=== PATIENT | female | born 1985 | race Caucasian/White ===

== ENCOUNTER 2018-02-27 09:03 | Inpatient (IN) | payer OTHER ==
--- NOTE | 2018-02-27 09:25 | PDOC ---
History of Present Illness - General History Source: Patient Exam Limitations: No Limitations - History of Present Illness Initial Comments: 02/27/18 11:08 The patient is a 32-year-old female, s/p cholecystectomy, who presents to the emergency department with worsening abdominal pain that started 4 days ago. Patient states she was here in December for a similar pain. She states the abdominal pain in December was localized more in the epigastric region, but notes the pain is now localized to the right lower quadrant. She states she was referred to a GI specialist during the last visit, and imaging was only remarkable for a left kidney stone and benign liver lesion. She also had a pelvic sonogram that was unremarkable. She states the abdominal pain is worsened when walking and moving. She reports the pain radiates to the back occasionally, but denies any flank pain. She reports associated nausea, subjective fever, chills, and white vaginal discharge. She states she has been taking percocet 3x per day with no significant relief of pain. The patient denies chest pain, shortness of breath, headache and dizziness. The patient denies vomit, diarrhea and constipation. The patient denies dysuria, frequency, urgency, hematuria, or vaginal bleeding. LMP: 01/30/18 Allergies: NKDA Past Surgical History: cholecystectomy, tube ligation, 3 c-sections Social History: No toxic habits reported <Estella Sanford - Last Filed: 02/27/18 13:16> <Lo Felix - Last Filed: 02/27/18 18:08> - General Chief Complaint: Pain, Acute Stated Complaint: ABD PAIN Time Seen by Provider: 02/27/18 09:24 Past History <Estella Sanford - Last Filed: 02/27/18 13:16> - Past Medical History COPD: No Other medical history: DENIES. - Surgical History Cholecystectomy: Yes - Suicide/Smoking/Psychosocial Hx Smoking History: Never smoked <Lo Felix - Last Filed: 02/27/18 18:08> - Past Medical History Allergies/Adverse Reactions: Allergies Allergy/AdvReac Type Severity Reaction Status Date / Time No Known Allergies Allergy Verified 02/27/18 09:12 Home Medications: Ambulatory Orders Oxycodone HCl/Acetaminophen [Oxycodon-Acetaminophen 7.5-325] 1 each PO Q6H PRN 02/27/18 Review of Systems - Review of Systems Able to Perform ROS?: Yes Comments:: 02/27/18 11:09 GENERAL/CONSTITUTIONAL: (+) Subjective fever. (+) Chills. No weakness. HEAD, EYES, EARS, NOSE AND THROAT: No change in vision. No ear pain or discharge. No sore throat. CARDIOVASCULAR: No chest pain or shortness of breath. RESPIRATORY: No cough, wheezing, or hemoptysis. GASTROINTESTINAL: (+) Abdominal pain. (+) Nausea. No vomiting, diarrhea or constipation. GENITOURINARY: No dysuria, frequency, or change in urination. MUSCULOSKELETAL: No joint or muscle swelling or pain. No neck or back pain. SKIN: No rash NEUROLOGIC: No headache, vertigo, loss of consciousness, or change in strength/ sensation. ENDOCRINE: No increased thirst. No abnormal weight change. HEMATOLOGIC/LYMPHATIC: No anemia, easy bleeding, or history of blood clots. ALLERGIC/IMMUNOLOGIC: No hives or skin allergy. <Sanford,Estella - Last Filed: 02/27/18 13:16> *Physical Exam - Vital Signs Last Vital Signs Temp Pulse Resp BP Pulse Ox 102.9 F H 106 H 19 112/56 100 02/27/18 10:52 02/27/18 09:07 02/27/18 09:07 02/27/18 09:07 02/27/18 09:07 - Physical Exam Comments: 02/27/18 11:10 GENERAL: Awake, alert, and fully oriented. (+) Appears uncomfortable, has rigors. HEAD: No signs of trauma EYES: PERRLA, EOMI, sclera anicteric, conjunctiva clear ENT: Auricles normal inspection, hearing grossly normal, nares patent, oropharynx clear without exudates. Moist mucosa NECK: Normal ROM, supple, no lymphadenopathy, JVD, or masses LUNGS: Breath sounds equal, clear to auscultation bilaterally. No wheezes, and no crackles HEART: Regular rate and rhythm, normal S1 and S2, no murmurs, rubs or gallops ABDOMEN: Soft, (+) RLQ ttp, normoactive bowel sounds. No guarding, no rebound. No masses. No CVA tenderness. Non-distended. VAGINAL EXAM: (+) Minimal physiologic white discharge. No CMT. No adnexal tenderness. Os is closed. EXTREMITIES: Normal range of motion, no edema. No clubbing or cyanosis. No cords, erythema, or tenderness NEUROLOGICAL: Cranial nerves II through XII grossly intact. Normal speech. SKIN: Warm, Dry, normal turgor, no rashes or lesions noted. <SanfordEstella - Last Filed: 02/27/18 13:16> - Vital Signs Last Vital Signs Temp Pulse Resp BP Pulse Ox 98.1 F 106 H 19 112/56 100 02/27/18 09:07 02/27/18 09:07 02/27/18 09:07 02/27/18 09:07 02/27/18 09:07 <Lo Felix - Last Filed: 02/27/18 18:08> ED Treatment Course - LABORATORY CBC & Chemistry Diagram: 02/27/18 10:41 02/27/18 10:41 - ADDITIONAL ORDERS Additional order review: Laboratory Results 02/27/18 09:30 Urine Color Yellow Urine Appearance Cloudy Urine pH 7.0 Ur Specific [place] 1.013 Urine Protein 2+ H Urine Glucose (UA) Negative Urine Ketones Negative Urine Blood 1+ H Urine Nitrite Positive Urine Bilirubin Negative Urine Urobilinogen Negative Ur Leukocyte Esterase 2+ H Urine WBC (Auto) 77 Urine RBC (Auto) 9 Ur Epithelial Cells Few Urine Bacteria Few Urine Mucus Few Urine Yeast Few Urine HCG, Qual Negative 02/27/18 10:41 RBC 4.37 MCV 77.9 L MCHC 33.3 RDW 15.7 H MPV 8.7 Neutrophils % 81.6 D Lymphocytes % 11.5 D Monocytes % 6.4 Eosinophils % 0.2 Basophils % 0.3 - Medications Given in the ED: ED Medications Discontinued Medications Generic Name Dose Route Start Last Admin Trade Name Caleb PRN Reason Stop Dose Admin Acetaminophen 1,000 mg 02/27/18 10:49 02/27/18 10:49 Ofirmev Injection - IVPB 02/27/18 10:50 1,000 mg NOW ONE Administration Morphine Sulfate 4 mg 02/27/18 10:28 02/27/18 10:49 Morphine Injection - IVPUSH 02/27/18 10:29 4 mg ONCE ONE Administration <JuvenalEstella - Last Filed: 02/27/18 13:16> - LABORATORY CBC & Chemistry Diagram: 02/27/18 10:41 02/27/18 10:41 <Lo Felix - Last Filed: 02/27/18 18:08> Medical Decision Making - Medical Decision Making 02/27/18 12:59 Pt presents to the ED complaining of R sided abdominal pain and fever for 4 days. Febrile and uncomfortable in the ED. Pelvic exam is inconsistent with PID. Differential diangosis includes appendicitis, urinary tract infection, less likely PID or diverticulitis. Will check labs and CT abdomen pelvis, reassess. <Lo Felix - Last Filed: 02/27/18 18:08> *DC/Admit/Observation/Transfer - Attestations Scribe Attestion: 02/27/18 11:10 Documentation prepared by Estella Sanford, acting as manager medical device for Lo Felix MD, /DO. <Estella Sanford - Last Filed: 02/27/18 13:16> - Discharge Dispostion Admit: Yes <Lo Felix - Last Filed: 02/27/18 18:08> Diagnosis at time of Disposition: Pyelonephritis - Discharge Dispostion Condition at time of disposition: Good
[2018-02-27 09:51] LABS: URINE APPEARANCE CLOUDY; URINE BILIRUBIN NEGATIVE (<2.0 mg/dL); URINE BLOOD 1+ (NEGATIVE); URINE COLOR YELLOW; URINE GLUCOSE (UA) NEGATIVE (NEGATIVE); URINE KETONE NEGATIVE (NEGATIVE); URINE NITRITE POSITIVE (NEGATIVE); URINE UROBILINOGEN NEGATIVE mg/dL (0.2-1.0)
[2018-02-27 09:56] LABS: HCG,QUALITATIVE URINE NEGATIVE
[2018-02-27 09:59] LABS: URINE LEUK ESTERASE 2+ (NEGATIVE); URINE PROTEIN 2+ (NEGATIVE)
[2018-02-27 10:04] LABS: EPI CELLS FEW /HPF (FEW); URINE BACTERIA FEW /hpf (NONE SEEN); URINE MUCUS FEW; YEAST FEW
[2018-02-27] MEDS ORDERED: SODIUM CHLORIDE 1,000 ML IV STA ×3 (10:28→20:59)
[2018-02-27] MEDS ORDERED: morphine CARPU-JECT 4 MG/1 ML DISP.SYRIN IVPUSH ONE ×2 (10:28→17:00)
[2018-02-27] MEDS ORDERED: morphine SULFATE 4 MG/ML VIAL ONE ×2 (10:42→18:14)
[2018-02-27] MEDS ORDERED: ACETAMINOPHEN INJECTION 100 ML IVPB ONE (10:43)
[2018-02-27] MEDS ORDERED: ACETAMINOPHEN 1000 MG/100 ML VIAL (NON FORMULARY) IVPB ONE (10:49)
[2018-02-27 10:59] LABS: BASO % 0.3 % (0-2.0); EOS % 0.2 % (0-4.5); HEMATOCRIT 34.1 % (32.4-45.2); HEMOGLOBIN 11.4 GM/dL (10.7-15.3); LYMPH % 11.5 % (8-40); MCHC 33.3 g/dl (32.0-36.0); MEAN CELL VOLUME 77.9 fl (80-96); MEAN PLT VOLUME 8.7 fl (7.5-11.1); MONO % 6.4 % (3.8-10.2); NEUT % 81.6 % (42.8-82.8); PLATELET COUNT 264 K/MM3 (134-434); RBC 4.37 M/mm3 (3.60-5.2); RDW 15.7 % (11.6-15.6); WHITE BLOOD COUNT 9.4 K/mm3 (4.0-10.0)
[2018-02-27 11:25] LABS: ALBUMIN 4.1 g/dl (3.4-5.0); ALK PHOS 149 U/L (45-117); ANION GAP 8 (8-16); BILIRUBIN,TOTAL 0.6 mg/dL (0.2-1.0); BLOOD UREA NITROGEN 7 mg/dL (7-18); CALCIUM 9.2 mg/dL (8.5-10.1); CHLORIDE 102 mmol/L (98-107); CO2 27 mmol/L (21-32); CREATININE 0.7 mg/dL (0.55-1.02); GLUCOSE,RANDOM 87 mg/dL (74-106); SGPT/ALT 37 U/L (12-78); SODIUM 137 mmol/L (136-145); TOT PROT 8.2 g/dl (6.4-8.2)
[2018-02-27 11:26] LABS: POTASSIUM 4.1 mmol/L (3.5-5.1); SGOT/AST 27 U/L (15-37)
[2018-02-27] MEDS ORDERED: ONDANSETRON 4 MG/2 ML VIAL IVPUSH ONE (15:24)
[2018-02-27] MEDS ORDERED: CEFTRIAXONE 1 GM in DEXTROSE 5%-WATER - 100 ML IVPB ONE (15:27)
[2018-02-27] MEDS ORDERED: CEFTRIAXONE 1 GM/50 ML BAG ONE (15:59)
--- NOTE | 2018-02-27 18:08 | HP ---
CHIEF COMPLAINT: Abdominal pain HISTORY OF PRESENT ILLNESS: 32 year-old female with a PMH significant for gastritis, and multiple abdominal surgeries (cholecystectomy, C-sections x 3, tubal ligation). Comes to the ED with complaint of abdominal pain x 4 days. Patient was seen in ED in December for similar complaint. Pain is localized to the RLQ and occasionally radiates to the back. She complains of nausea, subjective fever, chills and a white vaginal discharge. She has taken percocet 3x per day without significant relief of pain. Patient denies denies chest pain, shortness of breath, headache, and dizziness. The patient denies vomiting, diarrhea, and constipation. The patient denies dysuria, frequency, urgency, hematuria, and vaginal bleeding. LMP 01/30/18. ER course was notable for: (1) T102.9, p106, pyuria (2) Lactic acid 2.3 (3) Ceftriaxone x 1; NS x 1L; Zofran; IV Tylenol; morphine 4mg x 2 Recent Travel: No PAST MEDICAL HISTORY: Gastritis PAST SURGICAL HISTORY: Cholecystectomy C-sections x 3 Tubal ligation Social History: Smoking: no Alcohol: no Drugs: no Family History: Allergies No Known Allergies Allergy (Verified 02/27/18 09:12) HOME MEDICATIONS: Home Medications Medication Instructions Recorded Oxycodone HCl/Acetaminophen 1 each PO Q6H PRN 02/27/18 [Oxycodon-Acetaminophen 7.5-325] REVIEW OF SYSTEMS CONSTITUTIONAL: +fever, chills Absent: fever, chills, diaphoresis, generalized weakness, malaise, loss of appetite, weight change HEENT: Absent: rhinorrhea, nasal congestion, throat pain, throat swelling, difficulty swallowing, mouth swelling, ear pain, eye pain, visual changes CARDIOVASCULAR: Absent: chest pain, syncope, palpitations, irregular heart rate, lightheadedness , peripheral edema RESPIRATORY: Absent: cough, shortness of breath, dyspnea with exertion, orthopnea, wheezing, stridor, hemoptysis GASTROINTESTINAL: Absent: abdominal pain, abdominal distension, nausea, vomiting, diarrhea, constipation, melena, hematochezia GENITOURINARY: +RLQ pain Absent: dysuria, frequency, urgency, hesitancy, hematuria, flank pain, genital pain MUSCULOSKELETAL: Absent: myalgia, arthralgia, joint swelling, back pain, neck pain SKIN: Absent: rash, itching, pallor HEMATOLOGIC/IMMUNOLOGIC: Absent: easy bleeding, easy bruising, lymphadenopathy, frequent infections ENDOCRINE: Absent: unexplained weight gain, unexplained weight loss, heat intolerance, cold intolerance NEUROLOGIC: Absent: headache, focal weakness or paresthesias, dizziness, unsteady gait, seizure, mental status changes, bladder or bowel incontinence PSYCHIATRIC: Absent: anxiety, depression, suicidal or homicidal ideation, hallucinations. PHYSICAL EXAMINATION Vital Signs - 24 hr 02/27/18 02/27/18 09:07 10:52 Temperature 98.1 F 102.9 F H Pulse Rate 106 H Respiratory 19 Rate Blood Pressure 112/56 O2 Sat by Pulse 100 Oximetry (%) GENERAL: Awake, alert, and fully oriented, in no acute distress. HEAD: Normal with no signs of trauma. EYES: Pupils equal, round and reactive to light, extraocular movements intact, sclera anicteric, conjunctiva clear. No lid lag. EARS, NOSE, THROAT: Ears normal, nares patent, oropharynx clear without exudates. Moist mucous membranes. NECK: Normal range of motion, supple without lymphadenopathy, JVD, or masses. LUNGS: Breath sounds equal, clear to auscultation bilaterally. No wheezes, and no crackles. No accessory muscle use. HEART: Regular rate and rhythm, normal S1 and S2 without murmur, rub or gallop. ABDOMEN: Soft, RLQ tenderness, not distended, normoactive bowel sounds, no guarding, no rebound, no masses. MUSCULOSKELETAL: Normal range of motion at all joints. No bony deformities or tenderness. + Right CVA tenderness. UPPER EXTREMITIES: 2+ pulses, warm, well-perfused. No cyanosis. No clubbing. No peripheral edema. LOWER EXTREMITIES: 2+ pulses, warm, well-perfused. No calf tenderness. No peripheral edema. NEUROLOGICAL: Cranial nerves II-XII intact. Normal speech. Normal gait. PSYCHIATRIC: Cooperative. Good eye contact. Appropriate mood and affect. SKIN: Warm, dry, normal turgor Laboratory Results - last 24 hr 02/27/18 02/27/18 02/27/18 09:30 10:41 10:41 WBC 9.4 RBC 4.37 Hgb 11.4 Hct 34.1 MCV 77.9 L MCH 26.0 MCHC 33.3 RDW 15.7 H Plt Count 264 MPV 8.7 Neutrophils % 81.6 D Lymphocytes % 11.5 D Monocytes % 6.4 Eosinophils % 0.2 Basophils % 0.3 Sodium 137 Potassium 4.1 Chloride 102 Carbon Dioxide 27 Anion Gap 8 BUN 7 Creatinine 0.7 Creat Clearance w eGFR > 60 Random Glucose 87 Lactic Acid Calcium 9.2 Total Bilirubin 0.6 D AST 27 ALT 37 Alkaline Phosphatase 149 H Total Protein 8.2 Albumin 4.1 Urine Color Yellow Urine Appearance Cloudy Urine pH 7.0 Ur Specific [place] 1.013 Urine Protein 2+ H Urine Glucose (UA) Negative Urine Ketones Negative Urine Blood 1+ H Urine Nitrite Positive Urine Bilirubin Negative Urine Urobilinogen Negative Ur Leukocyte Esterase 2+ H Urine WBC (Auto) 77 Urine RBC (Auto) 9 Ur Epithelial Cells Few Urine Bacteria Few Urine Mucus Few Urine Yeast Few Urine HCG, Qual Negative 02/27/18 10:41 WBC RBC Hgb Hct MCV MCH MCHC RDW Plt Count MPV Neutrophils % Lymphocytes % Monocytes % Eosinophils % Basophils % Sodium Potassium Chloride Carbon Dioxide Anion Gap BUN Creatinine Creat Clearance w eGFR Random Glucose Lactic Acid 2.3 H* Calcium Total Bilirubin AST ALT Alkaline Phosphatase Total Protein Albumin Urine Color Urine Appearance Urine pH Ur Specific [place] Urine Protein Urine Glucose (UA) Urine Ketones Urine Blood Urine Nitrite Urine Bilirubin Urine Urobilinogen Ur Leukocyte Esterase Urine WBC (Auto) Urine RBC (Auto) Ur Epithelial Cells Urine Bacteria Urine Mucus Urine Yeast Urine HCG, Qual Imaging 02/27 CTAP: (1) 1.1cm nonspecific low attentuation focus left hepatic lobe, cyst with internal debris v. 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 Placed on observation for severe sepsis likely secondary to pyelonephritis. Severe sepsis likely seconday to pyelonephritis --T102.9, p106, pyuria, lactic acid 2.3 --NS 1L in ED, give another 2L, then 125mL/hr --ceftriaxone (day #1) --repeat lactic acid now --panculture FEN Fluids: NS @125mL/hr Electrolytes: replete as indicated Nutrition: regular diet DVT prophylaxis: oob, ambulation Dispo: continues to require observation. Full code. Visit type - Emergency Visit Emergency Visit: Yes ED Registration Date: 02/27/18 Care time: The patient presented to the Emergency Department on the above date and was hospitalized for further evaluation of their emergent condition. - New Patient This patient is new to me today: Yes Date on this admission: 02/27/18 - Critical Care Critical Care patient: No Hospitalist Screening - Colonoscopy Questionnaire Colonoscopy Questionnaire: Colonoscopy Questionnaire - Patient: 50 - 75 years old and never had a screening colonoscopy: No History of colon or rectal polyps, or CA: Unknown History of IBD, Crohn's disease or UC: Unknown History of abdominal radiation therapy as a child: Unknown - Relative: 1 with colon or rectal CA, or polyps at age 60 or younger: Unknown Colon or rectal CA diagnosed at age 45 or younger: Unknown Multiple relatives with colon or rectal CA: Unknown - Outcome: Screening Result: Negative Screen
[2018-02-27] MEDS ORDERED: SODIUM CHLORIDE 0.9% 1000 ML INFUS.BAG IV ONE (19:18)
[2018-02-27] MEDS: SODIUM CHLORIDE 1,000 ML IV SCH (19:39)
[2018-02-27] MEDS: ACETAMINOPHEN 325 MG TABLET (FP) PO SCH (21:56)
[2018-02-27] MEDS ORDERED: ACETAMINOPHEN 325 MG TABLET (FP) ONE (22:12)
[2018-02-28 01:10] VITALS: BMI 32.3
[2018-02-28] MEDS: ACETAMINOPHEN 325 MG TABLET (FP) PO SCH ×4 (03:00→20:10)
[2018-02-28] MEDS: oxyCODONE HCL 5 MG TABLET PO PRN ×3 (07:01→22:03)
[2018-02-28 07:59] LABS: BASO % 0.2 % (0-2.0); EOS % 0.4 % (0-4.5); HEMOGLOBIN 9.6 GM/dL (10.7-15.3); LYMPH % 15.2 % (8-40); MCH 26.2 pg (25.7-33.7); MCHC 33.3 g/dl (32.0-36.0); MEAN CELL VOLUME 78.6 fl (80-96); MEAN PLT VOLUME 8.9 fl (7.5-11.1); MONO % 9.3 % (3.8-10.2); NEUT % 74.9 % (42.8-82.8); PLATELET COUNT 189 K/MM3 (134-434); RBC 3.68 M/mm3 (3.60-5.2); RDW 15.9 % (11.6-15.6); WHITE BLOOD COUNT 9.8 K/mm3 (4.0-10.0)
[2018-02-28] MEDS: SODIUM CHLORIDE 1,000 ML IV SCH ×3 (08:21→20:09)
[2018-02-28 08:29] LABS: ANION GAP 7 (8-16); BLOOD UREA NITROGEN 7 mg/dL (7-18); CALCIUM 7.8 mg/dL (8.5-10.1); CHLORIDE 106 mmol/L (98-107); CO2 26 mmol/L (21-32); GLUCOSE,RANDOM 75 mg/dL (74-106); MAGNESIUM 1.8 mg/dL (1.8-2.4); POTASSIUM 3.4 mmol/L (3.5-5.1); SODIUM 139 mmol/L (136-145)
[2018-02-28 08:34] LABS: ALK PHOS 117 U/L (45-117); BILIRUBIN,TOTAL 0.5 mg/dL (0.2-1.0); CREATININE 0.5 mg/dL (0.55-1.02); SGOT/AST 19 U/L (15-37); SGPT/ALT 38 U/L (12-78); TOT PROT 6.2 g/dl (6.4-8.2)
[2018-02-28] MEDS ORDERED: DEXTROSE 5%-WATER - 50 ML IVPB ONE (09:00)
[2018-02-28] MEDS ORDERED: cefTRIAXone SODIUM 1 GM VIAL ONE (09:00)
[2018-02-28] MEDS ORDERED: PT OWN MED DRAWER 7, Y5N ONE (09:00)
[2018-02-28] MEDS ORDERED: CEFTRIAXONE 1 GM in DEXTROSE 5%-WATER - 50 ML IVPB SCH (10:00)
[2018-02-28] MEDS ORDERED: POTASSIUM CHLORIDE TABS 20 MEQ TABLET.ER (FP) PO ONE (14:15)
--- NOTE | 2018-02-28 14:58 | PN ---
Progress Note (short form) - Note Progress Note: Subjective: The patient was seen and examined at the bedside, she has complaints of pain to her right flank. Current Medications Generic Name Dose Route Start Last Admin Trade Name Caleb PRN Reason Stop Dose Admin Acetaminophen 650 mg 02/27/18 21:00 02/28/18 14:46 Tylenol - PO 650 mg Q6H APOLINAR Administration Sodium Chloride 1,000 mls @ 125 mls/hr 02/27/18 19:15 02/28/18 08:21 Normal Saline - IV 125 mls/hr ASDIR APOLINAR Administration Ceftriaxone Sodium 1 gm/ 50 mls @ 100 mls/hr 02/28/18 10:00 02/28/18 09:07 Dextrose IVPB 100 mls/hr DAILY APOLINAR Administration Oxycodone HCl 5 mg 02/27/18 19:14 02/28/18 12:38 Roxicodone - PO 5 mg Q4H PRN Administration PAIN LEVEL 6-10 Objective: Vital Signs Period Temp Pulse Resp BP Sys/Moeller Pulse Ox Last 24 Hr 97.7 F-99.8 F 84-105 18-20 90-107/51-65 99-99 Physical Exam: General: NAD, A&Ox3 Lungs: CTA bilaterally Heart: RRR, S1S2 Abd: Soft, RUQ tenderness, R CVA tenderness Ext: Warm, well-perfused. 2+ DP/PT bilaterally. No edema CBCD WBC 9.8 K/mm3 (4.0-10.0) 02/28/18 06:25 RBC 3.68 M/mm3 (3.60-5.2) 02/28/18 06:25 Hgb 9.6 GM/dL (10.7-15.3) L D 02/28/18 06:25 Hct 29.0 % (32.4-45.2) L 02/28/18 06:25 MCV 78.6 fl (80-96) L 02/28/18 06:25 MCHC 33.3 g/dl (32.0-36.0) 02/28/18 06:25 RDW 15.9 % (11.6-15.6) H 02/28/18 06:25 Plt Count 189 K/MM3 (134-434) D 02/28/18 06:25 MPV 8.9 fl (7.5-11.1) 02/28/18 06:25 CMP Sodium 139 mmol/L (136-145) 02/28/18 06:25 Potassium 3.4 mmol/L (3.5-5.1) L 02/28/18 06:25 Chloride 106 mmol/L (98-107) 02/28/18 06:25 Carbon Dioxide 26 mmol/L (21-32) 02/28/18 06:25 Anion Gap 7 (8-16) L 02/28/18 06:25 BUN 7 mg/dL (7-18) 02/28/18 06:25 Creatinine 0.5 mg/dL (0.55-1.02) L 02/28/18 06:25 Creat Clearance w eGFR > 60 (>60) 02/28/18 06:25 Random Glucose 75 mg/dL (74-106) 02/28/18 06:25 Calcium 7.8 mg/dL (8.5-10.1) L 02/28/18 06:25 Total Bilirubin 0.5 mg/dL (0.2-1.0) 02/28/18 06:25 AST 19 U/L (15-37) 02/28/18 06:25 ALT 38 U/L (12-78) 02/28/18 06:25 Alkaline Phosphatase 117 U/L (45-117) 02/28/18 06:25 Total Protein 6.2 g/dl (6.4-8.2) L 02/28/18 06:25 Albumin 3.0 g/dl (3.4-5.0) L 02/28/18 06:25 Microbiology 02/27/18 09:30 Urine - Urine Clean Catch Urine Culture - Preliminary Lactose Fermenting Neg Bacilli Assessment: This is a 32 year old female with PMHx of gastritis, multiple abdominal surgeries, who presented to the ED with abdominal pain x4 days and right flank pain. Plan: 1) Severe sepsis 2/2 acute pyelonephritis - Lactic acidosis resolved - Ceftriaxone - Urine culture with lactose fermenting negative bacilli - F/u blood cultures 2) F/E/N: - Hyperkalemia: replete - Monitor electrolytes - Regular diet 3) Prophylaxis: - Heparin 5,000u sq tid 4) Dispo: - Requires continued inpatient care CODE STATUS: FULL CODE Visit type - Emergency Visit Emergency Visit: Yes ED Registration Date: 02/27/18 Care time: The patient presented to the Emergency Department on the above date and was hospitalized for further evaluation of their emergent condition. - New Patient This patient is new to me today: Yes Date on this admission: 02/28/18 - Critical Care Critical Care patient: No
[2018-02-28] MEDS: morphine SULFATE 4 MG/ML VIAL IVPUSH PRN (19:52)
[2018-02-28] MEDS: HEPARIN NA (PORCINE) 5,000 UNITS/ML 1ML VIAL SQ SCH (21:21)
[2018-03-01] MEDS: morphine SULFATE 4 MG/ML VIAL IVPUSH PRN (01:25)
[2018-03-01] MEDS: ACETAMINOPHEN 325 MG TABLET (FP) PO SCH ×4 (03:40→21:26)
[2018-03-01] MEDS: oxyCODONE HCL 5 MG TABLET PO PRN ×2 (05:42→12:58)
[2018-03-01] MEDS: HEPARIN NA (PORCINE) 5,000 UNITS/ML 1ML VIAL SQ SCH ×3 (05:42→21:28)
[2018-03-01] MEDS ORDERED: MEROPENEM 1 GM in DEXTROSE 5%-WATER - 100 ML IVPB SCH (07:30)
[2018-03-01] MEDS ORDERED: MEROPENEM 1 GM in DEXTROSE 5%-WATER - 100 ML IVPB ONE (07:30)
[2018-03-01 07:41] LABS: BASO % 0.3 % (0-2.0); EOS % 0.6 % (0-4.5); HEMOGLOBIN 9.1 GM/dL (10.7-15.3); LYMPH % 22.6 % (8-40); MCH 26.1 pg (25.7-33.7); MCHC 33.5 g/dl (32.0-36.0); MEAN CELL VOLUME 77.8 fl (80-96); MEAN PLT VOLUME 8.1 fl (7.5-11.1); MONO % 10.7 % (3.8-10.2); NEUT % 65.8 % (42.8-82.8); PLATELET COUNT 174 K/MM3 (134-434); RBC 3.47 M/mm3 (3.60-5.2); RDW 15.8 % (11.6-15.6)
[2018-03-01 08:21] LABS: ALBUMIN 2.9 g/dl (3.4-5.0); ANION GAP 10 (8-16); BLOOD UREA NITROGEN 4 mg/dL (7-18); CALCIUM 7.8 mg/dL (8.5-10.1); CHLORIDE 105 mmol/L (98-107); CO2 24 mmol/L (21-32); CREATININE 0.5 mg/dL (0.55-1.02); GLUCOSE,RANDOM 81 mg/dL (74-106); POTASSIUM 3.9 mmol/L (3.5-5.1); SGOT/AST 20 U/L (15-37); SGPT/ALT 31 U/L (12-78); SODIUM 139 mmol/L (136-145)
[2018-03-01 08:22] LABS: ALK PHOS 110 U/L (45-117); BILIRUBIN,TOTAL 0.3 mg/dL (0.2-1.0); TOT PROT 6.2 g/dl (6.4-8.2)
[2018-03-01] MEDS ORDERED: PT OWN MED DRAWER 7, Y5N ONE ×2 (08:35→14:35)
--- NOTE | 2018-03-01 09:12 | PN ---
Progress Note (short form) - Note Progress Note: Subjective: The patient was seen and examined at the bedside, she has complaints of pain to her right flank. Increase morphine Fevers overnight, send cultures Change abx to meropenem Current Medications Generic Name Dose Route Start Last Admin Trade Name Freq PRN Reason Stop Dose Admin Acetaminophen 650 mg 02/27/18 21:00 03/01/18 07:59 Tylenol - PO 650 mg Q6H APOLINAR Administration Heparin Sodium (Porcine) 5,000 unit 02/28/18 22:00 03/01/18 05:42 Heparin - SQ 5,000 unit TID APOLINAR Administration Sodium Chloride 1,000 mls @ 125 mls/hr 02/27/18 19:15 02/28/18 20:09 Normal Saline - IV 125 mls/hr ASDIR APOLINAR Administration Meropenem 1 gm/ Dextrose 100 mls @ 100 mls/hr 03/01/18 07:30 IVPB Q8H-IV APOLINAR Protocol Morphine Sulfate 2 mg 02/28/18 18:59 03/01/18 01:25 Morphine Sulfate IVPUSH 2 mg Q4H PRN Administration PAIN LEVEL 6-10 Oxycodone HCl 5 mg 02/27/18 19:14 03/01/18 05:42 Roxicodone - PO 5 mg Q4H PRN Administration PAIN LEVEL 1-5 Objective: Vital Signs Period Temp Pulse Resp BP Sys/Moeller Pulse Ox Last 24 Hr 97.8 F-102.7 F 93-110 18-20 107-148/58-77 100 Physical Exam: General: NAD, A&Ox3 Lungs: CTA bilaterally Heart: RRR, S1S2 Abd: Soft, RUQ tenderness, R CVA tenderness Ext: Warm, well-perfused. 2+ DP/PT bilaterally. No edema CBCD WBC 6.0 K/mm3 (4.0-10.0) D 03/01/18 06:30 RBC 3.47 M/mm3 (3.60-5.2) L 03/01/18 06:30 Hgb 9.1 GM/dL (10.7-15.3) L 03/01/18 06:30 Hct 27.0 % (32.4-45.2) L 03/01/18 06:30 MCV 77.8 fl (80-96) L 03/01/18 06:30 MCHC 33.5 g/dl (32.0-36.0) 03/01/18 06:30 RDW 15.8 % (11.6-15.6) H 03/01/18 06:30 Plt Count 174 K/MM3 (134-434) 03/01/18 06:30 MPV 8.1 fl (7.5-11.1) 03/01/18 06:30 CMP Sodium 139 mmol/L (136-145) 02/28/18 06:25 Potassium 3.4 mmol/L (3.5-5.1) L 02/28/18 06:25 Chloride 106 mmol/L (98-107) 02/28/18 06:25 Carbon Dioxide 26 mmol/L (21-32) 02/28/18 06:25 Anion Gap 7 (8-16) L 02/28/18 06:25 BUN 7 mg/dL (7-18) 02/28/18 06:25 Creatinine 0.5 mg/dL (0.55-1.02) L 02/28/18 06:25 Creat Clearance w eGFR > 60 (>60) 02/28/18 06:25 Random Glucose 75 mg/dL (74-106) 02/28/18 06:25 Calcium 7.8 mg/dL (8.5-10.1) L 02/28/18 06:25 Total Bilirubin 0.5 mg/dL (0.2-1.0) 02/28/18 06:25 AST 19 U/L (15-37) 02/28/18 06:25 ALT 38 U/L (12-78) 02/28/18 06:25 Alkaline Phosphatase 117 U/L (45-117) 02/28/18 06:25 Total Protein 6.2 g/dl (6.4-8.2) L 02/28/18 06:25 Albumin 3.0 g/dl (3.4-5.0) L 02/28/18 06:25 Microbiology 02/27/18 20:37 Blood - Peripheral Venous Blood Culture - Preliminary NO GROWTH OBTAINED AFTER 24 HOURS, INCUBATION TO CONTINUE FOR 4 DAYS. 02/27/18 20:37 Blood - Peripheral Venous Blood Culture - Preliminary NO GROWTH OBTAINED AFTER 24 HOURS, INCUBATION TO CONTINUE FOR 4 DAYS. 02/27/18 09:30 Urine - Urine Clean Catch Urine Culture - Preliminary Lactose Fermenting Neg Bacilli Assessment: This is a 32 year old female with PMHx of gastritis, multiple abdominal surgeries, who presented to the ED with abdominal pain x4 days and right flank pain. Plan: 1) Severe sepsis 2/2 acute pyelonephritis - Febrile overnight - Resend cultures - Changed Ceftriaxone to Meropenem - Urine culture with lactose fermenting negative bacilli - F/u ID consult 2) F/E/N: - Monitor electrolytes - Regular diet 3) Prophylaxis: - Heparin 5,000u sq tid 4) Dispo: - Requires continued inpatient care - Per patient's request, discussed with sisterKayli CODE STATUS: FULL CODE Visit type - Emergency Visit Emergency Visit: Yes ED Registration Date: 02/28/18 Care time: The patient presented to the Emergency Department on the above date and was hospitalized for further evaluation of their emergent condition. - New Patient This patient is new to me today: No - Critical Care Critical Care patient: No
[2018-03-01] MEDS ORDERED: morphine SULFATE 4 MG/ML VIAL IVPUSH PRN (09:13)
--- NOTE | 2018-03-01 11:12 | PN ---
Progress Note, Physician Chief Complaint: ID 32 year old from [place] admitted for severe right upper quantrant and flank pain. Tmax 102.9 fever chills Denies urinary complaints hematuria. Recent CT scan showed a small left kidney stone Has had her gallbladder taken out - Current Medication List Current Medications: Active Medications Acetaminophen (Tylenol -) 650 mg PO Q6H [facility] Last Admin: 03/01/18 07:59 Dose: 650 mg Heparin Sodium (Porcine) (Heparin -) 5,000 unit SQ TID [facility] Last Admin: 03/01/18 05:42 Dose: 5,000 unit Sodium Chloride (Normal Saline -) 1,000 mls @ 125 mls/hr IV ASDIR APOLINAR Last Admin: 02/28/18 20:09 Dose: 125 mls/hr Meropenem 1 gm/ Dextrose 100 mls @ 100 mls/hr IVPB Q8H-IV APOLINAR PRN Reason: Protocol Morphine Sulfate (Morphine Sulfate) 3 mg IVPUSH Q4H PRN PRN Reason: PAIN LEVEL 6-10 Oxycodone HCl (Roxicodone -) 5 mg PO Q4H PRN PRN Reason: PAIN LEVEL 1-5 Last Admin: 03/01/18 05:42 Dose: 5 mg - Objective Vital Signs: Vital Signs Temperature 98.8 F 03/01/18 06:33 Pulse Rate 99 H 03/01/18 06:33 Respiratory Rate 18 03/01/18 06:33 Blood Pressure 111/69 03/01/18 06:33 O2 Sat by Pulse Oximetry (%) 100 02/28/18 22:00 Constitutional: Yes: No Distress Neck: Yes: WNL, Supple Cardiovascular: Yes: Regular Rate and Rhythm, S1, S2. No: Murmur Respiratory: Yes: WNL, Regular, CTA Bilaterally Gastrointestinal: Yes: WNL, Normal Bowel Sounds, Soft, Tenderness, Other (RUQ and flank tender) Edema: No Labs: CBC, BMP 03/01/18 06:30 03/01/18 06:30 Problem List - Problems (1) Pyelonephritis Code(s): N12 - TUBULO-INTERSTITIAL NEPHRITIS, NOT SPCF ACUTE OR CHRONIC Assessment/Plan Microbiology 02/27/18 20:37 Blood - Peripheral Venous Blood Culture - Preliminary NO GROWTH OBTAINED AFTER 24 HOURS, INCUBATION TO CONTINUE FOR 4 DAYS. 02/27/18 20:37 Blood - Peripheral Venous Blood Culture - Preliminary NO GROWTH OBTAINED AFTER 24 HOURS, INCUBATION TO CONTINUE FOR 4 DAYS. 02/27/18 09:30 Urine - Urine Clean Catch Urine Culture - Preliminary Lactose Fermenting Neg Bacilli Laboratory Tests 02/27/18 03/01/18 03/01/18 09:30 06:30 06:30 WBC 6.0 D RBC 3.47 L Hgb 9.1 L MCV 77.8 L Plt Count 174 BUN 4 L Urine RBC (Auto) 9 Urine HCG, Qual Negative Assessment Pyelonephritis improving GNB in urinary tract ESBL Plan Ertepenem 1 gram daily Renal sonogram and contact isolation Oliver PALACIOS
[2018-03-01] MEDS: ERTAPENEM SODIUM 1 GM in SODIUM CHLORIDE 100 ML IVPB SCH (14:41)
[2018-03-01] MEDS ORDERED: DOCUSATE SODIUM 100 MG CAPSULE (FP) PO PRN (17:56)
[2018-03-01] MEDS ORDERED: POLYETHYLENE GLYCOL 3350 119 GM BTL PO ONE (18:30)
[2018-03-01] MEDS: SODIUM CHLORIDE 1,000 ML IV SCH ×2 (21:28→21:54)
[2018-03-01] MEDS: SENNOSIDES 8.6MG TABLET (FP) PO SCH (21:29)
[2018-03-01 22:21] LABS: URINE APPEARANCE CLEAR; URINE BILIRUBIN NEGATIVE (<2.0 mg/dL); URINE BLOOD 1+ (NEGATIVE); URINE COLOR COLORLESS; URINE GLUCOSE (UA) NEGATIVE (NEGATIVE); URINE KETONE NEGATIVE (NEGATIVE); URINE LEUK ESTERASE NEGATIVE (NEGATIVE); URINE NITRITE NEGATIVE (NEGATIVE); URINE PROTEIN NEGATIVE (NEGATIVE); URINE UROBILINOGEN NEGATIVE mg/dL (0.2-1.0)
[2018-03-01 22:28] LABS: EPI CELLS RARE /HPF (FEW)
[2018-03-02] MEDS: ACETAMINOPHEN 325 MG TABLET (FP) PO SCH ×4 (03:00→21:15)
[2018-03-02] MEDS: HEPARIN NA (PORCINE) 5,000 UNITS/ML 1ML VIAL SQ SCH ×3 (05:48→21:15)
[2018-03-02] MEDS: SODIUM CHLORIDE 1,000 ML IV SCH ×2 (06:54→19:46)
[2018-03-02] MEDS ORDERED: PT OWN MED DRAWER 7, Y5N ONE ×2 (09:52→11:33)
[2018-03-02] MEDS: oxyCODONE HCL 5 MG TABLET PO PRN ×2 (10:03→19:59)
--- NOTE | 2018-03-02 10:44 | PN ---
Progress Note (short form) - Note Progress Note: still with complaints of severe flank pain imaging studies unremarkable afebrile Vital Signs Period Temp Pulse Resp BP Sys/Moeller Pulse Ox Last 24 Hr 97.6 F-98.6 F 72-94 18-20 108-129/63-74 100 cor-rrr lungs clear abd soft,nt +right CVAT ext no edema CBC, BMP 03/01/18 06:30 03/01/18 06:30 Microbiology 03/01/18 08:20 Blood - Peripheral Venous Blood Culture - Preliminary NO GROWTH OBTAINED AFTER 24 HOURS, INCUBATION TO CONTINUE FOR 4 DAYS. 03/01/18 07:45 Blood - Peripheral Venous Blood Culture - Preliminary NO GROWTH OBTAINED AFTER 24 HOURS, INCUBATION TO CONTINUE FOR 4 DAYS. 02/27/18 20:37 Blood - Peripheral Venous Blood Culture - Preliminary NO GROWTH OBTAINED AFTER 48 HOURS, INCUBATION TO CONTINUE FOR 3 DAYS. 02/27/18 20:37 Blood - Peripheral Venous Blood Culture - Preliminary NO GROWTH OBTAINED AFTER 48 HOURS, INCUBATION TO CONTINUE FOR 3 DAYS. 02/27/18 09:30 Urine - Urine Clean Catch Urine Culture - Final Escherichia Coli Esbl Awning Erector a/p pyelonephritis ecoli esbl uti ertapenem day #2 afebrile still with flank pain consider picc and home on ertapenem to complete 10 days once pain is improved d/w hospitalist
[2018-03-02] MEDS: ERTAPENEM SODIUM 1 GM in SODIUM CHLORIDE 100 ML IVPB SCH (10:47)
[2018-03-02] MEDS ORDERED: PICC LINE 8 ML FLUSH PROTOCOL IVPUSH PRN (12:04)
--- NOTE | 2018-03-02 13:38 | PN ---
Progress Note (short form) - Note Progress Note: Subjective: The patient was seen and examined at the bedside, she has complaints of pain to her right flank. Current Medications Generic Name Dose Route Start Last Admin Trade Name Freq PRN Reason Stop Dose Admin Acetaminophen 650 mg 02/27/18 21:00 03/02/18 09:03 Tylenol - PO 650 mg Q6H APOLINAR Administration Docusate Sodium 100 mg 03/01/18 17:56 Colace - PO Q8H PRN CONSTIPATION Heparin Sodium (Porcine) 5,000 unit 02/28/18 22:00 03/02/18 05:48 Heparin - SQ 5,000 unit TID APOLINAR Administration IV Flush 8 ml 03/02/18 12:04 Picc Line Flush IVPUSH PRN PRN Protocol Sodium Chloride 1,000 mls @ 125 mls/hr 02/27/18 19:15 03/02/18 06:54 Normal Saline - IV 125 mls/hr ASDIR APOLINAR Administration Ertapenem 1 gm/ Sodium 100 mls @ 200 mls/hr 03/01/18 15:00 03/02/18 10:47 Chloride IVPB 200 mls/hr DAILY APOLINAR Administration Protocol Oxycodone HCl 5 mg 02/27/18 19:14 03/02/18 10:03 Roxicodone - PO 5 mg Q4H PRN Administration PAIN LEVEL 1-5 Senna 2 tab 03/01/18 22:00 03/01/18 21:29 Senna - PO 2 tab HS APOLINAR Administration Objective: Vital Signs Period Temp Pulse Resp BP Sys/Moeller Pulse Ox Last 24 Hr 97.6 F-98.6 F 72-94 18-20 108-129/63-74 100 Physical Exam: General: NAD, A&Ox3 Lungs: CTA bilaterally Heart: RRR, S1S2 Abd: Soft, RUQ tenderness, R CVA tenderness Ext: Warm, well-perfused. 2+ DP/PT bilaterally. No edema CBCD WBC 6.0 K/mm3 (4.0-10.0) D 03/01/18 06:30 RBC 3.47 M/mm3 (3.60-5.2) L 03/01/18 06:30 Hgb 9.1 GM/dL (10.7-15.3) L 03/01/18 06:30 Hct 27.0 % (32.4-45.2) L 03/01/18 06:30 MCV 77.8 fl (80-96) L 03/01/18 06:30 MCHC 33.5 g/dl (32.0-36.0) 03/01/18 06:30 RDW 15.8 % (11.6-15.6) H 03/01/18 06:30 Plt Count 174 K/MM3 (134-434) 03/01/18 06:30 MPV 8.1 fl (7.5-11.1) 03/01/18 06:30 CMP Sodium 139 mmol/L (136-145) 03/01/18 06:30 Potassium 3.9 mmol/L (3.5-5.1) 03/01/18 06:30 Chloride 105 mmol/L (98-107) 03/01/18 06:30 Carbon Dioxide 24 mmol/L (21-32) 03/01/18 06:30 Anion Gap 10 (8-16) 03/01/18 06:30 BUN 4 mg/dL (7-18) L 03/01/18 06:30 Creatinine 0.5 mg/dL (0.55-1.02) L 03/01/18 06:30 Creat Clearance w eGFR > 60 (>60) 03/01/18 06:30 Random Glucose 81 mg/dL (74-106) 03/01/18 06:30 Calcium 7.8 mg/dL (8.5-10.1) L 03/01/18 06:30 Total Bilirubin 0.3 mg/dL (0.2-1.0) D 03/01/18 06:30 AST 20 U/L (15-37) 03/01/18 06:30 ALT 31 U/L (12-78) 03/01/18 06:30 Alkaline Phosphatase 110 U/L (45-117) 03/01/18 06:30 Total Protein 6.2 g/dl (6.4-8.2) L 03/01/18 06:30 Albumin 2.9 g/dl (3.4-5.0) L 03/01/18 06:30 Microbiology 03/01/18 08:20 Blood - Peripheral Venous Blood Culture - Preliminary NO GROWTH OBTAINED AFTER 24 HOURS, INCUBATION TO CONTINUE FOR 4 DAYS. 03/01/18 07:45 Blood - Peripheral Venous Blood Culture - Preliminary NO GROWTH OBTAINED AFTER 24 HOURS, INCUBATION TO CONTINUE FOR 4 DAYS. 02/27/18 20:37 Blood - Peripheral Venous Blood Culture - Preliminary NO GROWTH OBTAINED AFTER 48 HOURS, INCUBATION TO CONTINUE FOR 3 DAYS. 02/27/18 20:37 Blood - Peripheral Venous Blood Culture - Preliminary NO GROWTH OBTAINED AFTER 48 HOURS, INCUBATION TO CONTINUE FOR 3 DAYS. 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 Plan: 1) Severe sepsis 2/2 acute pyelonephritis, ESBL - Continue Ertapenem for total 10 days - Oxycodone prn pain - Appreciate ID consult 2) F/E/N: - Hyperkalemia: resolved - Monitor electrolytes - Regular diet 3) Prophylaxis: - Heparin 5,000u sq tid 4) Dispo: - Requires continued inpatient care CODE STATUS: FULL CODE Visit type - Emergency Visit Emergency Visit: Yes ED Registration Date: 02/28/18 Care time: The patient presented to the Emergency Department on the above date and was hospitalized for further evaluation of their emergent condition. - New Patient This patient is new to me today: No - Critical Care Critical Care patient: No
--- NOTE | 2018-03-02 18:08 | DS ---
Physical Examination Vital Signs: Vital Signs Temperature 98.4 F 03/02/18 17:07 Pulse Rate 66 03/02/18 17:07 Respiratory Rate 20 03/02/18 17:07 Blood Pressure 104/69 03/02/18 17:07 O2 Sat by Pulse Oximetry (%) 100 03/02/18 10:00 Labs: CBC, BMP 03/01/18 06:30 03/01/18 06:30 Discharge Summary Reason For Visit: PYELONEPHRITIS Current Active Problems Pyelonephritis (Acute) Condition: Improved - Instructions Diet, Activity, Other Instructions: Please return to the ED with new, persistent, or worsening symptoms. Please follow-up with providers as indicated. You are being discharged with a PICC line for outpatient IV antibiotics. You will be completing a total of 10 days of Ertapenem. If you have a fever greater than 100.4, please return to the emergency department immediately. Referrals: Dillan Peralta MD [Staff Physician] - (Please follow-up with Dr. Peralta within 1 week for further management of your UTI and to assure its resolution) Peter Boyd MD [Staff Physician] - 1 Week Disposition: VNS/HOME HEALTH CARE - Home Medications Comprehensive Discharge Medication List: Ambulatory Orders Oxycodone HCl/Acetaminophen [Oxycodon-Acetaminophen 7.5-325] 1 each PO Q6H PRN 02/27/18 Ertapenem Sodium [Invanz] 1 gm IV DAILY #7 vial.port 03/02/18
[2018-03-02] MEDS: SENNOSIDES 8.6MG TABLET (FP) PO SCH ×2 (21:15→21:17)
[2018-03-03] MEDS: ACETAMINOPHEN 325 MG TABLET (FP) PO SCH ×2 (03:51→10:04)
[2018-03-03] MEDS: SODIUM CHLORIDE 1,000 ML IV SCH (03:53)
[2018-03-03 05:43] VITALS: TEMP 98
[2018-03-03] MEDS: HEPARIN NA (PORCINE) 5,000 UNITS/ML 1ML VIAL SQ SCH (06:01)
--- NOTE | 2018-03-03 09:07 | PN ---
Progress Note (short form) - Note Progress Note: ID Ertepenem Pain almost gone Afebrile Selected Entries 03/03/18 05:43 Temperature 98 F Pulse Rate 71 Respiratory 20 Rate Laboratory Tests 03/01/18 06:30 WBC 6.0 D Hgb 9.1 L Hct 27.0 L Plt Count 174 Assessment Pyelonephritis with ESBL Plan Complete treatment via PICC line Kindly recall as needed Oliver PALACIOS Problem List - Problems (1) Pyelonephritis Code(s): N12 - TUBULO-INTERSTITIAL NEPHRITIS, NOT [facility] ACUTE OR CHRONIC
[2018-03-03] MEDS ORDERED: PT OWN MED DRAWER 7, Y5N ONE (10:00)
[2018-03-03] MEDS: ERTAPENEM SODIUM 1 GM in SODIUM CHLORIDE 100 ML IVPB SCH (10:04)
--- NOTE | 2018-03-03 10:27 | HOSP ---
Physical Examination Vital Signs: Vital Signs Temperature 98 F 03/03/18 05:43 Pulse Rate 71 03/03/18 05:43 Respiratory Rate 20 03/03/18 05:43 Blood Pressure 101/69 03/03/18 05:43 O2 Sat by Pulse Oximetry (%) 100 03/02/18 22:00 Labs: CBC, BMP 03/01/18 06:30 03/01/18 06:30 Hospitalist Encounter Assessment: Informed by SW that [facility] was calling to get prescriptions over the phone regarding antibiotics and length of same Called [facility] [phone] and spoke to rep, informed that Ertapenem 1gram was to be administered via [facility] for a total of 7 more doses CBC, CRP, CMP, ESR after infusion complete and should be faxed to Dr. Boyd
[2018-03-03 10:51] VITALS: BP 108/66; PULSE 72
== END 2018-03-03 14:08 | disposition home health service (06) | DRG 720 ==
LOC: JER 09:03 → JERBED 18:08 → J8W 23:53 → OBSVTOIN 02-28 15:26 → J8W 03-01 11:44
PROVIDERS: ADMIT Hospitalist; ATTEND Nurse Practitioner Family
PROC: 02HV33Z Insertion of Infusion Device into Superior Vena Cava, Percutaneous Approach (ICD-10-PCS; principal; 2018-03-02)
DX: A41.9 Sepsis, unspecified organism (principal); N10 Acute pyelonephritis; Z16.12 Extended spectrum beta lactamase (ESBL) resistance; E87.5 Hyperkalemia; R65.20 Severe sepsis without septic shock; E87.2 Acidosis
CPT/HCPCS: 36415; 36569; 71045-TC-FY; 74177-TC; 76775-TC; 76830-TC; 77001-TC-FY; 80053; 81003; 81015; 83605; 83690; 83735; 84703; 85025; 87040; 87086; 87186; 87491; 87591; 99283-25; C1751; G0378; J0131; J1644; J7030